=== PATIENT | female | born 1935 | race Caucasian/White ===

== ENCOUNTER → 2020-05-08 13:01 | Outpatient (BNVA) | payer MEDICARE, OTHER, SELFPAY | PROVIDERS: PCP Internal Medicine; Referring Provider Internal Medicine; Visit Provider Nurse Practitioner Family | DX: R07.9 Chest pain, unspecified (principal); R06.02 Shortness of breath; I45.10 Unspecified right bundle-branch block; I48.0 Paroxysmal atrial fibrillation; I10 Essential (primary) hypertension; J44.9 Chronic obstructive pulmonary disease, unspecified; E78.5 Hyperlipidemia, unspecified; Z79.01 Long term (current) use of anticoagulants; Z79.899 Other long term (current) drug therapy | CPT/HCPCS: 99214 ==

== ENCOUNTER → 2020-05-17 09:35 | Outpatient (REF) | payer MEDICARE, OTHER, SELFPAY ==
--- NOTE | 2020-05-17 | NM_ITS ---
Lexiscan Myocardial perfusion study Indication: Chest pain, shortness of breath, abnormal EKG, assess for coronary artery disease and ischemia Technique: The patient was brought in for a Lexiscan perfusion study on 05/17/2020 and was injected 0.4 mg of Lexiscan intravenously. Within a minute of this injection 25 mCi of sestamibi was given intravenously. Images were obtained using the SPECT gamma camera interlaced with the gating device. Images were obtained in supine position. Resting perfusion study was performed on 05/18/2020. Patient was administered 25 mCi of sestamibi intravenously at rest. Images were then obtained in supine position. Total DLP 117mGy-cm. Images were processed with the software and compared side to side in short axis, horizontal long axis and vertical long axis views. Findings: Raw acquisition was reviewed. The stress perfusion study showed no significant perfusion abnormality. Both uncorrected as well as CT attenuation corrected images were reviewed. The gated study shows normal LV systolic function with calculated LVEF of > 70%. LV cavity is normal in size. The gated study shows normal wall thickening and contraction of segments. Resting study shows no significant perfusion abnormality. Gating at rest reveals normal wall motion with ejection fraction at > 70%. The findings are consistent with no reversible or fixed perfusion defects. Impression: 1. Myocardial perfusion imaging study shows normal myocardial perfusion. No evidence of any ischemia or infarction. 2. Gated LVEF is > 70%. 3. Transient ischemic dilatation not present. EKG component of the test reported separately.
--- NOTE | 2020-05-17 07:02 | CA_ITS ---
Acquisition Time: 2020-05-17 10:19:16 Total Exercise Time: 00:02:00 Test Indications: Dyspnea Medications: ELIQUIS LOSARTAN METOPROLOL OMEPRAZOLE SPIRONALACTONE Protocol: LEXISCAN Max HR: 099 BPM 72% of Pred: 136 BPM Max BP: 148/082 mmHG Max Work Load: 1.0 METS Pharmacological stress test using Lexiscan while sitting. Tolerated well. Denies any anginal sx. EKG with A-fib and RBBB. Non-diagnostic for ischemia. Nuclear images to follow. Normotensive response to test. Test reviewed with Dr. Nj. Referred By: Yen Edwards Overread By: Corby Alvares
== END ==
LOC: HO.CARD 09:35
PROVIDERS: Visit Provider Nurse Practitioner Family
DX: R07.9 Chest pain, unspecified (principal); I10 Essential (primary) hypertension; E78.5 Hyperlipidemia, unspecified
CPT/HCPCS: 78452; 93017; A9500; J0280; J2785

== ENCOUNTER → 2020-05-19 10:31 | Outpatient (REF) | payer MEDICARE, OTHER, SELFPAY ==
--- NOTE | 2020-05-19 10:33 | CA_ITS ---
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 - E/E prime ratio is between 8 and 15 consistent with indeterminate filling pressures. Evidence suggests grade I (mild) diastolic dysfunction. - Normal right ventricular cavity size and systolic function. - No significant valvular or pericardial pathology. Findings Left Ventricle Normal left ventricular size and systolic function. There is mildly increased left ventricular wall thickness. The visually estimated ejection fraction is between 60-65%. There is no evidence of regional wall motion abnormalities. Abnormal diastolic function is noted. Spectral Doppler is indicative of an impaired relaxation filling pattern. E/E prime ratio is between 8 and 15 consistent with indeterminate filling pressures. Evidence suggests grade I (mild) diastolic dysfunction. Right Ventricle Normal right ventricular cavity size and systolic function. Atria The left atrium is normal in size. There is no evidence of interatrial shunt by color Doppler. Aortic Valve Normal aortic valve structure and function. There is no aortic valve stenosis. There is trace (trivial) aortic valve regurgitation. Mitral Valve Normal mitral valve structure and function. There is no mitral valve regurgitation. There is no mitral valve stenosis. Pulmonic Valve Normal pulmonic valve structure and function. There is trace pulmonic valve regurgitation. Tricuspid Valve Normal tricuspid valve structure and function. There is mild tricuspid valve regurgitation. Normal right atrial pressure. There is no evidence of pulmonary hypertension. Great Vessels There is mild dilatation of the ascending aorta. The visualized portions of the pulmonary artery and branches are normal. Venous The inferior vena cava is normal in size and collapses greater than 50% with inspiration. Pericardium/Pleural There is no evidence of pericardial effusion. Prior Study Comparison No significant change compared to prior study dated: 05/05/2018. Measurements 2D Linear Measurements IVSd: 1.22 0.6-0.9/0.6-1.0 cm LVIDd: 3.92 3.9-5.3/4.2-5.9 cm LVIDs: 2.51 2.0-3.6 cm LVPWd: 1.17 0.7-1.1 cm Ao Root: 3.42 2.1-3.5 cm LV Mass: 199.66 67-162/88-224 g LVOT Diam: 2.00 3.0+(-)1.3 cm Mitral Valve MV Pk E: 0.59 MV PK A: 1.00 MV Decel Time: 166.63 E/A: 0.59 E'Lateral: 0.07 E'Medial: 0.05 Decel Cowley: 3.54 Aortic Valve AoV Pk Vitaliy: 1.68 AoV Mn Vitaliy: 0.90 AoV VTI: 0.30 AoV Pk Grad: 11.28 Aov Mn Grad: 3.96 LVOT LVOT Pk Vitaliy: 0.94 LVOT Mn Vitaliy: 0.57 LVOT VTI: 0.21 LVOT Pk Grad: 3.50 LVOT Mn Grad: 1.58 LVOT Diam: 2.00 LVOT Area: 3.15 Diastolic Function MV Pk E: 0.59 MV Pk A: 1.00 E/A: 0.59 E'Medial: 0.05 E' Laterial: 0.07 Tricuspid Valve TR Pk Ivtaliy: 2.08 TR Pk Grad: 17.29 RA Press: 3.00 RVSP: 20.00 Great Vessels Aorta Ao Root-2D: 3.42 2.0-3.7 cm Ao Asc: 3.60 2.1-3.4 cm Pulmonary Valve PV Pk Vitaliy: 0.92 Peak PV Grad: 3.44 Updated in Other Vendor System with Status of Final Luis Urias MD electronically signed on 05/21/2020 8:17:53 PM with status of Final
== END ==
LOC: HO.CARD 10:31
PROVIDERS: Visit Provider Nurse Practitioner Family
DX: R07.9 Chest pain, unspecified (principal); E78.5 Hyperlipidemia, unspecified; I10 Essential (primary) hypertension
CPT/HCPCS: 93306

== ENCOUNTER → 2020-06-08 10:26 | Outpatient (BNVA) | payer MEDICARE, OTHER, SELFPAY | PROVIDERS: PCP Internal Medicine; Referring Provider Internal Medicine; Visit Provider Internal Medicine Cardiovascular Disease | DX: R07.89 Other chest pain (principal); I48.0 Paroxysmal atrial fibrillation; I10 Essential (primary) hypertension; E78.5 Hyperlipidemia, unspecified; Z79.01 Long term (current) use of anticoagulants; Z79.899 Other long term (current) drug therapy | CPT/HCPCS: 99212 ==

== ENCOUNTER → 2020-07-24 13:10 | Outpatient (BNVA) | payer MEDICARE, OTHER, SELFPAY | PROVIDERS: PCP Internal Medicine; Visit Provider Internal Medicine Cardiovascular Disease | DX: I48.0 Paroxysmal atrial fibrillation (principal); R07.9 Chest pain, unspecified | CPT/HCPCS: 99212 ==

== ENCOUNTER 2020-08-15 14:00 | Outpatient (REF) | payer MEDICARE, OTHER, SELFPAY ==
--- NOTE | 2020-08-15 | XR_ITS ---
EXAMINATION: XR HIP, LEFT CLINICAL INFORMATION: Left groin pain COMPARISON: None TECHNIQUE: Two views of the left hip. FINDINGS: There is no fracture, dislocation, destructive process. No focal joint narrowing or erosive change. Soft tissue planes are unremarkable. The visualized SI joints and pubis are unremarkable. XR/XR hip LT min 2V IMPRESSION: Unremarkable left hip.
[2020-08-15 17:05] LABS: Anion Gap 14 (12-20); Blood Urea Nitrogen 18 mg/dL (9-16); Calcium 9.9 mg/dL (8.4-10.2); Carbon Dioxide 27 mmol/L (22-29); Chloride 103 mmol/L (96-108); Estimated Glomerular Filt Rate 56; Glucose Random 124 mg/dL (60-115); Potassium 4.3 mmol/l (3.3-5.1); Sodium 140 mmol/L (135-145)
== END 2020-08-15 14:01 | disposition home or self-care (01) ==
LOC: HO.HMGCX 14:00
PROVIDERS: Internal Medicine Cardiovascular Disease; PCP Internal Medicine; Visit Provider Internal Medicine
DX: I10 Essential (primary) hypertension (principal); R73.01 Impaired fasting glucose; E78.00 Pure hypercholesterolemia, unspecified; G47.00 Insomnia, unspecified; R10.32 Left lower quadrant pain
CPT/HCPCS: 36415; 73502; 80048

== ENCOUNTER 2020-10-02 09:39 | Day surgery (SDC) | payer MEDICARE, OTHER, SELFPAY ==
[2020-09-27 10:41] VITALS: BMI 28.1
--- NOTE | 2020-09-29 08:42 | HO.ANESPROP2 ---
Documented by User: Shira Tatyana 09/29/20 11:01 HPI - Anesthesia Eval Consult details Narrative: 85yo F for Upper Endoscopy with Balloon Dilitation Per cardiology OK [facility] Active Problems Active Problems: All Active Problems (Updated 09/27/20 @ 10:40 by Galilea Nation) Chest pain (Acute) Nephropathy (Acute) Impaired fasting blood sugar (Acute) Groin pain, chronic, left (Acute) Chronic GERD (Acute) Paroxysmal atrial fibrillation (Acute) HTN (hypertension) (Acute) COPD (chronic obstructive pulmonary disease) (Acute) HLD (hyperlipidemia) (Acute) RBBB (Acute) Past Medical History Medical History Arthritis Back pain COPD (chronic obstructive pulmonary disease) COVID-19 vaccine administered GERD (gastroesophageal reflux disease) Hard of hearing History of postoperative nausea and vomiting HLD (hyperlipidemia) HTN (hypertension) Hx of motion sickness Hx of vertigo Paroxysmal atrial fibrillation RBBB Family History Family History Father Cancer Mother CAD (coronary artery disease) Emphysema/COPD HTN (hypertension) Surgical History Surgical History Hx laparoscopic cholecystectomy (~1979) Hx of appendectomy Hx of cataract surgery (~2004) Hx of colonoscopy Hx of hysterectomy Hx of right breast biopsy Hx of tonsillectomy Social History Social History Are you a primary health care consultant to a significant other at home: No Do you presently have visiting nurse or other home services: No Alcohol intake: never Smoking Status: Never smoker Second Hand Smoke Exposure: Yes Use of substances other than those prescribed or required for medical reasons: No Have you been hit, kicked, punched, or otherwise hurt by someone within the past year? If so, by whom?: No Advance Directives: No (unknown) Advance Directives Information Provided: No Recently lost weight without trying: No Meds Allergies Allergy/AdvReac Type Severity Reaction Status Date / Time bandage adhesive Allergy Intermediate rash Verified 09/27/20 10:21 bumetanide [Bumex] AdvReac Intermediate gout Verified 09/27/20 10:21 furosemide [Lasix] AdvReac Intermediate gout Verified 09/27/20 10:21 Home Medications Medication Instructions Recorded Confirmed Last Taken Type ascorbic acid (vitamin C) 500 mg 500 mg PO DAILY 05/06/20 09/27/20 Unknown History capsule cholecalciferol (vitamin D3) 50 50 mcg PO DAILY 05/06/20 09/27/20 Unknown History mcg (2,000 unit) chewable tablet omeprazole 20 mg capsule,delayed 20 mg PO DAILY 05/06/20 09/27/20 Unknown History release acetaminophen 325 mg capsule 650 mg PO Q6H PRN 07/24/20 09/27/20 Unknown History multivitamin 1 tab PO DAILY 07/24/20 09/27/20 Unknown History dimenhydrinate [Dramamine] 50 mg PO Q4-6H PRN 09/27/20 09/27/20 Unknown History Exam Exam Date and Time: September 29, 2020 0842 Height,Weight and Vital Signs: Height 5 ft 3 in Weight 72.121 kg Narrative Narrative: Stress MIBI 05/2020 Impression: Pharmacological stress test using Lexiscan while sitting. Tolerated well. Denies any anginal sx. EKG with A-fib and RBBB. Non-diagnostic for ischemia. Nuc Images 1. Myocardial perfusion imaging study shows normal myocardial perfusion. No evidence of any ischemia or infarction. 2. Gated LVEF is > 70%. 3. Transient ischemic dilatation not present. ECHO 05/2020 Conclusions: - The visually estimated ejection fraction is between 60-65%. - E/E prime ratio is between 8 and 15 consistent with indeterminate filling pressures. Evidence suggests grade I (mild) diastolic dysfunction. - Normal right ventricular cavity size and systolic function. - No significant valvular or pericardial pathology. EKG 05/08/20 NSR LAD RBBB T wave abn, ? lateral ischemia Assessment and Plan Assessment Anesthesia Assessment: Chart Reviewed Documented by User: Frederick Vinson 10/02/20 10:42 [facility] Past Medical History Medical History Arthritis Back pain COPD (chronic obstructive pulmonary disease) COVID-19 vaccine administered GERD (gastroesophageal reflux disease) Hard of hearing History of postoperative nausea and vomiting HLD (hyperlipidemia) HTN (hypertension) Hx of motion sickness Hx of vertigo Paroxysmal atrial fibrillation RBBB Family History Family History Father Cancer Mother CAD (coronary artery disease) Emphysema/COPD HTN (hypertension) Surgical History Surgical History Hx laparoscopic cholecystectomy (~1979) Hx of appendectomy Hx of cataract surgery (~2004) Hx of colonoscopy Hx of hysterectomy Hx of right breast biopsy Hx of tonsillectomy Social History Social History Are you a primary health care consultant to a significant other at home: No Do you presently have visiting nurse or other home services: No Alcohol intake: never Smoking Status: Never smoker Second Hand Smoke Exposure: Yes Use of substances other than those prescribed or required for medical reasons: No Have you been hit, kicked, punched, or otherwise hurt by someone within the past year? If so, by whom?: No Advance Directives: No (unknown) Advance Directives Information Provided: No Recently lost weight without trying: No Meds Allergies Allergy/AdvReac Type Severity Reaction Status Date / Time bandage adhesive Allergy Intermediate rash Verified 09/27/20 10:21 bumetanide [Bumex] AdvReac Intermediate gout Verified 09/27/20 10:21 furosemide [Lasix] AdvReac Intermediate gout Verified 09/27/20 10:21 Home Medications Medication Instructions Recorded Confirmed Last Taken Type ascorbic acid (vitamin C) 500 mg 500 mg PO DAILY 05/06/20 09/27/20 Unknown History capsule cholecalciferol (vitamin D3) 50 50 mcg PO DAILY 05/06/20 09/27/20 Unknown History mcg (2,000 unit) chewable tablet omeprazole 20 mg capsule,delayed 20 mg PO DAILY 05/06/20 09/27/20 Unknown History release acetaminophen 325 mg capsule 650 mg PO Q6H PRN 07/24/20 09/27/20 Unknown History multivitamin 1 tab PO DAILY 07/24/20 09/27/20 Unknown History dimenhydrinate [Dramamine] 50 mg PO Q4-6H PRN 09/27/20 09/27/20 Unknown History Exam Airway Mallampati Class: II TM Dist: >3cm Neck ROM: Full Partial: Upper and Lower Heart: [id number] Lungs: cta b/l Assessment and Plan Assessment Anesthesia Assessment: Anesthesia Plan Discussed, PAT Visit and Chart Reviewed Final Anesthetic Review NPO: Yes ASA Class: III Final Preanesthetic Review: No Changes in Pt Med Stat, Meds/Allgs Chart Reviewed, Consent Obtained/Reviewed and Anes Risks/Benef Reviewed Patient Risk: Intermediate Procedure Risk: Low Anesthetic Plan Anesthetic Plan: MAC: and Agree w/ Assess. and Plan Disposition: Standard PACU
[2020-10-02 10:04] VITALS: BP 190/88; PULSE 74; RESP 16; TEMP 36.9; O2SAT 16
[2020-10-02] MEDS: Lactated Ringers 1,000 ML 50 ML IV (10:31)
[2020-10-02 11:14] VITALS: BP 105/47; PULSE 70; RESP 16; TEMP 36.1; O2SAT 95
--- NOTE | 2020-10-02 11:18 | PM.OP ---
Brief Operative Note Date of Service: 10/02/20 Pre-op diagnosis: Dysphagia, diarrhea Post-op diagnosis: other (Esophageal ring, Hiatal hernia, Gastric polyps) Procedure: EGD with biopsies and balloon dialtion of EG Junction with an 18mm balloon Surgeon: Maxime Mata Anesthesia: MAC Estimated blood loss (mL): 4.0 Pathology: other (A. Descending duodenum B. Gastric polyps) Condition: stable Disposition: PACU
[2020-10-02 11:29] VITALS: BP 132/52; PULSE 72; RESP 17; TEMP 36.1; O2SAT 97
--- NOTE | 2020-10-02 11:30 | OP_ITS ---
SURGEON: Maxime Mata MD INDICATIONS: The patient presents for evaluation of intermittent dysphagia and abdominal bloating. Full consent has been obtained from her for this, including risks of bleeding and perforation. PREOPERATIVE DIAGNOSIS: POSTOPERATIVE DIAGNOSIS: PROCEDURE PERFORMED: Esophagogastroduodenoscopy with biopsies, and balloon dilation of gastroesophageal junction. ESTIMATED BLOOD LOSS: COMPLICATIONS: ANESTHESIA: Monitored anesthesia care. ASSISTANTS: SPECIMENS: PREOPERATIVE DIAGNOSES: Dysphagia, gastroesophageal reflux, and abdominal bloating. POSTOPERATIVE DIAGNOSES: Dysphagia, gastroesophageal reflux, and abdominal bloating, hiatal hernia, rule out celiac disease, gastric polyps, question of very minimal distal esophageal ring. DESCRIPTION OF PROCEDURE: The patient was placed in the left lateral decubitus position. The Olympus video gastroscope was passed in the posterior oropharynx and upper esophagus under direct vision. The scope was passed slowly into the distal esophagus. The gastroesophageal junction appeared at 36 cm. With insufflation of air, there appeared to be a very subtle and definitely nonobstructing esophageal ring. There was no esophagitis nor gross evidence of Augustine's esophagus. The scope entered into the stomach easily. There was a small hiatal hernia. The scope was advanced to pylorus and duodenum was cannulated to the descending portion. The duodenum including the bulb appeared normal without mass or ulceration. Biopsies were obtained from the 2nd and 3rd portions of duodenum. The scope was withdrawn back in the stomach. The gastric antrum appeared normal. The scope was retroflexed visualizing the proximal stomach carefully, which had multiple hyperplastic and/or inflammatory appearing polyps. There was no mass or ulceration. The scope was straightened. There was good peristalsis in the gastric antrum. Biopsies were obtained from some of the gastric polyps. The scope was withdrawn back in the esophagus. Given her symptomatology and the findings, I did use a [employer] balloon to dilate the gastroesophageal junction with an 18 mm balloon at the recommended pressure for 30 to 60 seconds. Post dilation, there was some heme noted. The esophageal mucosa otherwise appeared normal throughout the esophagus. The scope was withdrawn from the patient. She tolerated the procedure well and was returned to recovery area in stable condition. IMPRESSION: 1. Very subtle distal esophageal ring, status post balloon dilation. 2. Hiatal hernia. 3. Gastric polyps. 4. Rule out celiac disease. PLAN: The results of the biopsy will be checked. She was advised to continue her daily omeprazole. She was advised that she could resume her Xarelto tomorrow. She will continue to be carefully eating and will see me in 2 to 3 months for a followup visit. MD NIMISHA Kwok/BRIA / [phone]
== END 2020-10-02 11:53 | disposition home or self-care (01) ==
PROVIDERS: PCP Internal Medicine; Visit Provider Internal Medicine
PROC: (CPT 43249; principal; 2020-10-02 10:30)
DX: K22.2 Esophageal obstruction (principal); K21.9 Gastro-esophageal reflux disease without esophagitis; K31.7 Polyp of stomach and duodenum; K44.9 Diaphragmatic hernia without obstruction or gangrene; J44.9 Chronic obstructive pulmonary disease, unspecified; I10 Essential (primary) hypertension; I48.0 Paroxysmal atrial fibrillation; Z79.01 Long term (current) use of anticoagulants; Z79.899 Other long term (current) drug therapy; Z88.8 Allergy status to other drugs, medicaments and biological substances
CPT/HCPCS: 43249; 43239; 88305; 88342; C1726

== ENCOUNTER 2020-10-05 11:20 | Outpatient (REF) | payer MEDICARE, OTHER, SELFPAY ==
[2020-10-05 14:32] LABS: Anion Gap 14 (12-20); Blood Urea Nitrogen 20 mg/dL (9-16); Calcium 9.8 mg/dL (8.4-10.2); Carbon Dioxide 27 mmol/L (22-29); Chloride 104 mmol/L (96-108); Estimated Glomerular Filt Rate 50; Glucose Random 122 mg/dL (60-115); Potassium 4.1 mmol/L (3.3-5.1); Sodium 141 mmol/L (135-145)
== END 2020-10-05 11:21 | disposition home or self-care (01) ==
LOC: HO.HMGCLDS 11:20
PROVIDERS: PCP Internal Medicine; Visit Provider Internal Medicine Cardiovascular Disease
DX: R07.9 Chest pain, unspecified (principal); I10 Essential (primary) hypertension
CPT/HCPCS: 36415; 80048

== ENCOUNTER 2020-10-10 15:42 | Emergency (ER) | payer MEDICARE, OTHER, SELFPAY ==
--- NOTE | ~2020-10-10 | CT_ITS ---
EXAMINATION: CT HEAD WITHOUT CONTRAST CLINICAL INFORMATION: Lightheaded. Loss of balance. COMPARISON: CT head from 04/30/2012. TECHNIQUE: Contiguous axial imaging was performed from the skull base to vertex without intravenous administration of contrast. This CT examination was performed using dose optimization techniques as appropriate, variously including the following: *Automated exposure control. *Adjustment of mA and/or kV according to patient size (this includes techniques or standardized protocols for targeted exams where dose is matched to indication/reason for exam; i.e. extremities or head). *Use of iterative reconstruction technique. DLP: 657 mGy-cm FINDINGS: There is no evidence of acute intracranial hemorrhage or edematous territorial infarction. A few foci of hypoattenuation in the periventricular and deep white matter are consistent with mild microangiopathy. Trevino-white matter differentiation is preserved. Proportional prominence of the ventricles and sulcal spaces. No evidence for obstructive hydrocephalus. No abnormal mass effect or midline shift. No extra-axial fluid collections. Calcific atherosclerotic disease of the intracranial internal carotid and vertebral arteries. No hyperdense vessel sign. No acute soft tissue or osseous abnormalities. Mild rightward nasal septal deviation. The mastoid air cells and middle ear cavities remain well aerated. Bilateral lens extractions. CT/CT head/brain wo con IMPRESSION: 1. No evidence of acute intracranial hemorrhage or edematous territorial infarction. 2. Mild underlying microangiopathy and generalized cerebral volume loss.
[2020-10-10 15:48] VITALS: BP 219/11; PULSE 84; RESP 16; TEMP 37.1; O2SAT 99; BMI 28.0
[2020-10-10 16:20] VITALS: BP 187/82
--- NOTE | 2020-10-10 16:21 | PC.NURSE ---
patient reports that she became lightheaded earlier today while at physical therapy. blood pressure at that time was stable. then was sent to pcp where blood pressure was WNL. patient states she was told to come to ED for evaluation. states she does feel frustrated that she was referred to come to ED. blood pressure rechecked, has come down slightly. patient states she took her blood pressure meds this morning before going to physical therapy and is due again at dinner time. waiting to be seen by .
[2020-10-10 16:31] VITALS: BP 169/84
--- NOTE | 2020-10-10 16:53 | ECG_ITS ---
Test Reason : HYPERTENSION Blood Pressure : / mmHG Vent. Rate : 079 BPM Atrial Rate : 079 BPM P-R Int : 164 ms QRS Dur : 132 ms QT Int : 418 ms P-R-T Axes : 055 -36 -03 degrees QTc Int : 479 ms Normal sinus rhythm Left axis deviation Right bundle branch block Abnormal ECG When compared with ECG of 01-FEB-2016 13:26, No significant change was found Referred By: Kelsey Fletcher Electronically Signed By:Luis Urias
[2020-10-10 17:27] LABS: Glucose, Whole Blood 110 mg/dL (60-115)
[2020-10-10 17:38] LABS: MANUAL DIFF FLAG NO
--- NOTE | 2020-10-10 17:40 | ED.DIZZY ---
HPI - Dizziness General Chief Complaint: Dizziness Stated Complaint: light headed, nausea Time Seen by Provider: 10/10/20 16:44 Source: patient Mode of arrival: ambulatory Limitations: no limitations History of Present Illness HPI Narrative: 85-year-old female with past medical history of paroxysmal AFib on Eliquis, hypertension, COPD, hyperlipidemia, right bundle-branch block, nephropathy, and chronic left groin pain presents the emergency department from physical therapy and urgent care after dizziness, lightheadedness and intermittent loss of balance. She does not report any fevers, chills, changes in vision, headaches, chest pain or pressure, palpitations, shortness of breath, shortness of breath on exertion, edema, abdominal pain, abdominal distention, dysuria, hematuria, fevers or chills. MD elicited complaint: dizziness, lightheadedness and vertigo Pertinent past history: BPPV Onset (ago): day(s) Timing: gradual onset and intermittent Severity: moderate Description: lightheadedness and off-balance History of similar symptoms: Yes Exacerbating factors: movement/ambulation and change in body position Relieving factors: nothing Associated symptoms: denies other symptoms Stroke scale total: 0 Related Data Home Medications Medication Instructions Recorded Confirmed ascorbic acid (vitamin C) 500 mg 500 mg PO DAILY 05/06/20 09/27/20 capsule cholecalciferol (vitamin D3) 50 50 mcg PO DAILY 05/06/20 09/27/20 mcg (2,000 unit) chewable tablet omeprazole 20 mg capsule,delayed 20 mg PO DAILY 05/06/20 09/27/20 release acetaminophen 325 mg capsule 650 mg PO Q6H PRN 07/24/20 09/27/20 multivitamin 1 tab PO DAILY 07/24/20 09/27/20 dimenhydrinate [Dramamine] 50 mg PO Q4-6H PRN 09/27/20 09/27/20 Previous Rx's Medication Instructions Recorded losartan 25 mg tablet 25 mg PO DAILY 90 Days #90 tab 09/01/20 apixaban 5 mg tablet 5 mg PO BID 90 Days #180 tab 09/18/20 metoprolol succinate 50 mg 50 mg PO BID 90 Days #180 tab 09/18/20 tablet,extended release 24 hr spironolactone 50 mg tablet 50 mg PO DAILY 90 Days #90 tab 09/22/20 cefuroxime axetil 500 mg PO Q12H 7 Days #14 tab 10/10/20 Allergies Allergy/AdvReac Type Severity Reaction Status Date / Time bandage adhesive Allergy Intermediate rash Verified 09/27/20 10:21 bumetanide [Bumex] AdvReac Intermediate gout Verified 09/27/20 10:21 furosemide [Lasix] AdvReac Intermediate gout Verified 09/27/20 10:21 Review of Systems Review of Systems: Constitutional: Positive dizziness, positive lightheadedness, positive intermittent loss of balance secondary to dizziness, No Weight loss, No Fever, No Chills, ENT/Mouth: No Hearing loss, No Ear Pain, No Nasal Congestion, No Sinus Pain, No Hoarseness, No sore throat, No Rhinorrhea, No Swallowing Difficulty Cardiovascular: No Chest Pain, No SOB, no shortness of breath on exertion Respiratory: No Cough, No Dyspnea Gastrointestinal: No Nausea, No Vomiting, No Diarrhea, No abdominal Pain, No Hematochezia, No Melena Genitourinary: No Dysuria, No Urinary Frequency, No Hematuria, No Urinary Incontinence, Musculoskeletal: No pain, no swelling to the extremities Skin: No Skin Lesions, No rash, no abnormal bleeding or bruising Neuro: No Weakness, No Numbness, No Paresthesias, no loss of bowel or bladder incontinence, no saddle anesthesia Yes all other systems are reviewed and are negative [facility] Past Medical History Attestation statement: The following information was validated with the patient. Source: old records reviewed Medical History Arthritis Back pain COPD (chronic obstructive pulmonary disease) COVID-19 vaccine administered GERD (gastroesophageal reflux disease) Hard of hearing History of postoperative nausea and vomiting HLD (hyperlipidemia) HTN (hypertension) Hx of motion sickness Hx of vertigo Paroxysmal atrial fibrillation RBBB Surgical History Hx laparoscopic cholecystectomy (~1979) Hx of appendectomy Hx of cataract surgery (~2004) Hx of colonoscopy Hx of hysterectomy Hx of right breast biopsy Hx of tonsillectomy Family History Family History Father Cancer Mother CAD (coronary artery disease) Emphysema/COPD HTN (hypertension) Social History Social History Alcohol intake: never Smoking Status: Never smoker Smoked in Last 30 Days: No Second Hand Smoke Exposure: Yes Use of substances other than those prescribed or required for medical reasons: No Advance Directives: No Advance Directives Information Provided: No Physical Exam Vital Signs: Vital Signs: Last Vital Signs Temp 98.7 F 10/10/20 15:48 Pulse 70 10/10/20 17:45 Resp 16 10/10/20 15:48 BP 147/78 H 10/10/20 17:50 Pulse Ox 99 10/10/20 15:48 Body Mass Index 28.0 Appearance: Alert. Oriented X3. No acute distress. Eyes: Pupils equal, round and reactive to light. EOMI, sclera nonicteric ENT: Pharynx normal. Trachea midline, moist mucous membranes Neck: Normal inspection. Neck supple. No cervical lymphadenopathy CVS: Normal heart rate and rhythm. Pulses normal. Respiratory: No respiratory distress. Lung sounds clear to auscultation all lobes Abdomen: Soft and nontender. Skin: Skin warm and dry. Normal skin color. Normal skin turgor. Extremities: No lower extremity edema. Strength 5/5 to all extremities Neuro: No motor deficit. No sensory deficit. Cranial nerves 2-12 intact, no focal neural deficit, gait well balanced well coordinated NIH Stroke Scale Internal: Initial- Upon Arrival Level of Consciousness: Alert Level of Consciousness Questions: Answers both questions correctly Level of Consciousness Commands: Performs both tasks correctly Best Gaze: Normal Visual: No visual loss Facial Palsy: Normal Motor Arm (Right): No drift Motor Arm (Left): No drift Motor Leg (Right): No drift Motor Leg (Left): No drift Limb Ataxia: Absent Sensory: Normal Best Language: No aphasia Dysarthia: Normal Extinction and Inattention: No abnormality Score: 0 Course Course Course Narrative: 85-year-old female with past medical history of AFib on Eliquis, vertigo, nephropathy, GERD, hypertension, hyperlipidemia, COPD, right bundle-branch block and GERD presents with dizziness and lightheadedness after physical therapy. She does state intermittent loss of balance. She is having a full cardiac workup at [facility] with angiogram next week. Plan of care is for CT scan of head, rule out ACS and UTI. 6:[address] scan of head is negative for acute findings requiring emergent intervention, chronic changes noted. 7:00 p.m. p.m. RN updated this BLEACH SUPERVISOR that patient wanted to be discharged home. Urinalysis was not collected, and repeat troponin is needed. This was discussed with RN as well as patient. Patient agrees to provide urine sample and 2nd troponin. Urinalysis positive for UTI, 2nd troponin not significantly elevated, troponin elevation could possibly be because of patient's long-standing AFib. She does have significant follow-up with Cardiology next week. Patient verbalizes understanding of and agrees to plan of care to discharge home. MDM - Dizziness Differential Diagnosis Differential diagnosis: Likely benign paroxysmal positional vertigo, orthostatic hypotension and cerebrovascular accident Medical Records Attestation: I reviewed the patient's medical records. Lab Data Attestation: I reviewed the patient's lab results. Result diagrams: 10/10/20 17:33 10/10/20 17:33 Labs: Lab Results 10/10/20 10/10/20 10/10/20 Range/Units 17:23 17:33 17:33 WBC 9.0 (4.8-10.8) X10*3/uL RBC 4.40 (4.20-5.50) X10*6/uL Hgb 13.6 (12.0-16.0) g/dl Hct 41.0 (37-47) % MCV 93.2 (80-98) fL MCH 30.9 (27.0-33.0) pg MCHC 33.2 (31.0-35.0) g/dl RDW 12.8 (11.0-16.0) % Plt Count 183 (160-400) X10*3/uL MPV 11.1 (9.4-12.3) fL Immature Gran % (Auto) 0.4 (0.0-0.4) % Neut % (Auto) 61.0 (45-73) % Lymph % (Auto) 26.6 (20-40) % Mayes % (Auto) 10.0 (2-11) % Eos % (Auto) 1.7 (0-4) % Baso % (Auto) 0.3 (0-2) % Lymph # (Auto) 2.4 (1.2-4.9) X10*3/uL Mayes # (Auto) 0.9 (0.1-1.2) X10*3/uL Eos # (Auto) 0.2 (0.0-0.4) X10*3/uL Baso # (Auto) 0.0 (0.0-0.2) X10*3/uL Abs Immat Gran (auto) 0.04 H (0.00-0.03) X10*3/uL Absolute Neuts (auto) 5.5 (2.0-8.3) X10*3/uL Absolute Nucleated RBC 0.000 (0.0-0.012) X10*3/uL Nucleated RBC % (auto) 0.0 (0.0-0.2) /100WBC PT (10.8-13.0) SEC INR (0.9-1.1) APTT (24.1-38.0) SEC Sodium (135-145) mmol/L Potassium (3.3-5.1) mmol/L Chloride (96-108) mmol/L Carbon Dioxide (22-29) mmol/L Anion Gap (12-20) BUN (9-16) mg/dL Creatinine (0.5-1.4) mg/dL Estim Creat Clear Calc Estimated GFR POC Glucose 110 (60-115) mg/dL Random Glucose (60-115) mg/dL Calcium (8.4-10.2) mg/dL Total Bilirubin (0.0-1.0) mg/dL Direct Bilirubin (0.0-0.5) mg/dL AST (5-31) U/L ALT (0-31) U/L Alkaline Phosphatase (39-117) U/L Troponin I High Sens 5.7 (<3.5-17.0) ng/L Total Protein (6.5-8.0) g/dL Albumin (3.5-5.0) g/dL Lipase (8-78) U/L Urine Color Urine Appearance Urine pH (5.0-8.0) Ur Specific Lynn (1.005-1.025) Urine Protein (NEG-TRACE) MG/DL Urine Glucose (UA) (NEG) MG/DL Urine Ketones (NEG) MG/DL Urine Blood (NEG) Urine Nitrite (NEG) Ur Leukocyte Esterase (NEG) Urine RBC (0) /HPF Urine WBC (0-4) /HPF Ur Squamous Epith Cells /LPF Urine Bacteria /LPF 10/10/20 10/10/20 10/10/20 Range/Units 17:33 17:33 19:22 WBC (4.8-10.8) X10*3/uL RBC (4.20-5.50) X10*6/uL Hgb (12.0-16.0) g/dl Hct (37-47) % MCV (80-98) fL MCH (27.0-33.0) pg MCHC (31.0-35.0) g/dl RDW (11.0-16.0) % Plt Count (160-400) X10*3/uL MPV (9.4-12.3) fL Immature Gran % (Auto) (0.0-0.4) % Neut % (Auto) (45-73) % Lymph % (Auto) (20-40) % Mayes % (Auto) (2-11) % Eos % (Auto) (0-4) % Baso % (Auto) (0-2) % Lymph # (Auto) (1.2-4.9) X10*3/uL Mayes # (Auto) (0.1-1.2) X10*3/uL Eos # (Auto) (0.0-0.4) X10*3/uL Baso # (Auto) (0.0-0.2) X10*3/uL Abs Immat Gran (auto) (0.00-0.03) X10*3/uL Absolute Neuts (auto) (2.0-8.3) X10*3/uL Absolute Nucleated RBC (0.0-0.012) X10*3/uL Nucleated RBC % (auto) (0.0-0.2) /100WBC PT 14.9 H (10.8-13.0) SEC INR 1.3 H (0.9-1.1) APTT 37.8 (24.1-38.0) SEC Sodium 140 (135-145) mmol/L Potassium 4.0 (3.3-5.1) mmol/L Chloride 105 (96-108) mmol/L Carbon Dioxide 27 (22-29) mmol/L Anion Gap 12 (12-20) BUN 18 H (9-16) mg/dL Creatinine 0.96 (0.5-1.4) mg/dL Estim Creat Clear Calc 41.3 Estimated GFR 55 POC Glucose (60-115) mg/dL Random Glucose 119 H (60-115) mg/dL Calcium 10.0 (8.4-10.2) mg/dL Total Bilirubin 0.7 (0.0-1.0) mg/dL Direct Bilirubin 0.2 (0.0-0.5) mg/dL AST 14 (5-31) U/L ALT 17 (0-31) U/L Alkaline Phosphatase 66 (39-117) U/L Troponin I High Sens (<3.5-17.0) ng/L Total Protein 7.3 (6.5-8.0) g/dL Albumin 4.5 (3.5-5.0) g/dL Lipase 50 (8-78) U/L Urine Color YELLOW Urine Appearance CLEAR Urine pH 5.5 (5.0-8.0) Ur Specific Lynn 1.010 (1.005-1.025) Urine Protein NEG (NEG-TRACE) MG/DL Urine Glucose (UA) NEG (NEG) MG/DL Urine Ketones NEG (NEG) MG/DL Urine Blood TRACE (NEG) Urine Nitrite NEG (NEG) Ur Leukocyte Esterase 2+ H (NEG) Urine RBC 0 (0) /HPF Urine WBC 5-9 H (0-4) /HPF Ur Squamous Epith Cells 1+ /LPF Urine Bacteria 1+ /LPF 10/10/20 Range/Units 19:37 WBC (4.8-10.8) X10*3/uL RBC (4.20-5.50) X10*6/uL Hgb (12.0-16.0) g/dl Hct (37-47) % MCV (80-98) fL MCH (27.0-33.0) pg MCHC (31.0-35.0) g/dl RDW (11.0-16.0) % Plt Count (160-400) X10*3/uL MPV (9.4-12.3) fL Immature Gran % (Auto) (0.0-0.4) % Neut % (Auto) (45-73) % Lymph % (Auto) (20-40) % Mayes % (Auto) (2-11) % Eos % (Auto) (0-4) % Baso % (Auto) (0-2) % Lymph # (Auto) (1.2-4.9) X10*3/uL Mayes # (Auto) (0.1-1.2) X10*3/uL Eos # (Auto) (0.0-0.4) X10*3/uL Baso # (Auto) (0.0-0.2) X10*3/uL Abs Immat Gran (auto) (0.00-0.03) X10*3/uL Absolute Neuts (auto) (2.0-8.3) X10*3/uL Absolute Nucleated RBC (0.0-0.012) X10*3/uL Nucleated RBC % (auto) (0.0-0.2) /100WBC PT (10.8-13.0) SEC INR (0.9-1.1) APTT (24.1-38.0) SEC Sodium (135-145) mmol/L Potassium (3.3-5.1) mmol/L Chloride (96-108) mmol/L Carbon Dioxide (22-29) mmol/L Anion Gap (12-20) BUN (9-16) mg/dL Creatinine (0.5-1.4) mg/dL Estim Creat Clear Calc Estimated GFR POC Glucose (60-115) mg/dL Random Glucose (60-115) mg/dL Calcium (8.4-10.2) mg/dL Total Bilirubin (0.0-1.0) mg/dL Direct Bilirubin (0.0-0.5) mg/dL AST (5-31) U/L ALT (0-31) U/L Alkaline Phosphatase (39-117) U/L Troponin I High Sens 5.9 (<3.5-17.0) ng/L Total Protein (6.5-8.0) g/dL Albumin (3.5-5.0) g/dL Lipase (8-78) U/L Urine Color Urine Appearance Urine pH (5.0-8.0) Ur Specific Lynn (1.005-1.025) Urine Protein (NEG-TRACE) MG/DL Urine Glucose (UA) (NEG) MG/DL Urine Ketones (NEG) MG/DL Urine Blood (NEG) Urine Nitrite (NEG) Ur Leukocyte Esterase (NEG) Urine RBC (0) /HPF Urine WBC (0-4) /HPF Ur Squamous Epith Cells /LPF Urine Bacteria /LPF Imaging Data CT scan - head: Attestation: I personally reviewed and interpreted this imaging study as follows: Radiologist's impression: EXAMINATION: CT HEAD WITHOUT CONTRAST CLINICAL INFORMATION: Lightheaded. Loss of balance. COMPARISON: CT head from 04/30/2012. TECHNIQUE: Contiguous axial imaging was performed from the skull base to vertex without intravenous administration of contrast. This CT examination was performed using dose optimization techniques as appropriate, variously including the following: *Automated exposure control. *Adjustment of mA and/or kV according to patient size (this includes techniques or standardized protocols for targeted exams where dose is matched to indication/reason for exam; i.e. extremities or head). *Use of iterative reconstruction technique. DLP: 657 mGy-cm FINDINGS: There is no evidence of acute intracranial hemorrhage or edematous territorial infarction. A few foci of hypoattenuation in the periventricular and deep white matter are consistent with mild microangiopathy. Trevino-white matter differentiation is preserved. Proportional prominence of the ventricles and sulcal spaces. No evidence for obstructive hydrocephalus. No abnormal mass effect or midline shift. No extra-axial fluid collections. Calcific atherosclerotic disease of the intracranial internal carotid and vertebral arteries. No hyperdense vessel sign. No acute soft tissue or osseous abnormalities. Mild rightward nasal septal deviation. The mastoid air cells and middle ear cavities remain well aerated. Bilateral lens extractions. CT/CT head/brain wo con IMPRESSION: 1. No evidence of acute intracranial hemorrhage or edematous territorial infarction. 2. Mild underlying microangiopathy and generalized cerebral volume loss. ECG Data Attestation: I personally reviewed and interpreted this ECG as follows: ECG interpretation date: 10/10/20 ECG interpretation time: 16:05 Interpretation: Ventricular rate 79 beats per minute, MS 164, QRS 132, QT 418, QTC 479 normal rhythm, left axis deviation, right bundle-branch block, prior EKGs unavailable secondary to system 130 error Discharge Plan Discharge Clinical Impression: Acute UTI Patient Disposition: Home, Self-Care Instructions: Urinary Tract Infection in Older Adults (ED) Additional Instructions: You were evaluated for dizziness. CT scan of the head is negative for acute findings requiring emergent intervention. Troponins show a mild elevation at 5.7 this could possibly be because of your atrial fib. Your urinalysis is positive for UTI. Please take cefuroxime twice a day for the next 7 days. This medication is an antibiotic. Please follow up with Cardiology as scheduled. Thank you for choosing this emergency department for evaluation. Please follow-up with primary care physician as needed. Return to the emergency department for any new, concerning, or worsening symptoms. Prescriptions: New cefuroxime axetil 500 mg tablet 500 mg PO Q12H 7 Days Qty: 14 RF: 0 No Action losartan 25 mg tablet 25 mg PO DAILY 90 Days Qty: 90 RF: 0 Hold Instructions: Doctor's Order Eliquis 5 mg tablet 5 mg PO BID 90 Days Qty: 180 RF: 0 metoprolol succinate 50 mg tablet extended release 24 hr 50 mg PO BID 90 Days Qty: 180 RF: 0 spironolactone 50 mg tablet 50 mg PO DAILY 90 Days Qty: 90 RF: 0 dimenhydrinate [Dramamine] 50 mg Tablet 50 mg PO Q4-6H PRN (Reason: Motion Sickness) RF: 0 acetaminophen [Tylenol] 325 mg capsule 650 mg PO Q6H PRN (Reason: Pain) RF: 0 multivitamin Tablet 1 tab PO DAILY RF: 0 cholecalciferol (vitamin D3) 50 mcg (2,000 unit) tablet,chewable 50 mcg PO DAILY RF: 0 omeprazole 20 mg capsule,delayed release(DR/EC) 20 mg PO DAILY RF: 0 ascorbic acid (vitamin C) 500 mg capsule 500 mg PO DAILY RF: 0 Interventions: ED Discharge Assessment Last Done: 10/10/20 20:00 Discharge Date/Time: 10/10/20 20:07
[2020-10-10 17:44] VITALS: BP 151/61; PULSE 66
[2020-10-10 17:44] LABS: Basophils Percent Auto 0.3 % (0-2); Eosinophils Absolute Auto 0.2 X10*3/uL (0.0-0.4); Eosinophils Percent Auto 1.7 % (0-4); Hemoglobin 13.6 g/dl (12.0-16.0); Imm Gran Abs Auto 0.04 X10*3/uL (0.00-0.03); Imm Gran Pct Auto 0.4 % (0.0-0.4); Lymphocytes Absolute Auto 2.4 X10*3/uL (1.2-4.9); Lymphocytes Percent Auto 26.6 % (20-40); Mean Corpuscular HGB Conc 33.2 g/dl (31.0-35.0); Mean Corpuscular Hemoglobin 30.9 pg (27.0-33.0); Mean Corpuscular Volume 93.2 fL (80-98); Mean Platelet Volume 11.1 fL (9.4-12.3); Monocytes Absolute Auto 0.9 X10*3/uL (0.1-1.2); Neutrophils Absolute Auto 5.5 X10*3/uL (2.0-8.3); Platelet Count 183 X10*3/uL (160-400); Red Cell Distribution Width 12.8 % (11.0-16.0)
[2020-10-10 17:45] VITALS: BP 170/70; BP 188/68; PULSE 70; PULSE 71
[2020-10-10 17:50] VITALS: BP 147/78
[2020-10-10 17:53] LABS: INTERNATIONAL NORM RATIO 1.3 (0.9-1.1); Prothrombin Time 14.9 SEC (10.8-13.0)
[2020-10-10 17:56] LABS: Partial Thromboplastin Time 37.8 SEC (24.1-38.0)
[2020-10-10 18:09] LABS: Alanine Aminotransferase 17 U/L (0-31); Albumin Level 4.5 g/dL (3.5-5.0); Alkaline Phosphatase 66 U/L (39-117); Anion Gap 12 (12-20); Aspartate Amino Transferase 14 U/L (5-31); Bilirubin Direct 0.2 mg/dL (0.0-0.5); Bilirubin Total 0.7 mg/dL (0.0-1.0); Blood Urea Nitrogen 18 mg/dL (9-16); Carbon Dioxide 27 mmol/L (22-29); Chloride 105 mmol/L (96-108); Creatinine Clr Calc Pharmacy 41.3; Estimated Glomerular Filt Rate 55; Glucose Random 119 mg/dL (60-115); Lipase 50 U/L (8-78); Sodium 140 mmol/L (135-145); Total Protein 7.3 g/dL (6.5-8.0)
[2020-10-10 18:14] LABS: Troponin-I High Sensitivity 5.7 ng/L (<3.5-17.0)
[2020-10-10 19:30] LABS: Glucose Urine UA NEG (NEG); Leukocyte Esterase Urine 2+ (NEG); Nitrite Urine NEG (NEG); PH 5.5 (5.0-8.0); UACC Culture Trigger YES; Urine Blood TRACE (NEG); Urine Ketones NEG (NEG); Urine Protein NEG (NEG-TRACE)
[2020-10-10 19:32] LABS: Appearance Urine CLEAR; Color Urine YELLOW
[2020-10-10 19:51] LABS: Bacteria Urine 1+ /LPF; RBC Urine 0 /HPF (0); Squamous Epithelial Cell Urine 1+ /LPF
[2020-10-10 20:18] LABS: Troponin-I High Sensitivity 5.9 ng/L (<3.5-17.0)
== END 2020-10-10 20:07 | disposition home or self-care (01) ==
PROVIDERS: Nurse Practitioner Family; Emergency Provider Emergency Medicine; PCP Internal Medicine
DX: N39.0 Urinary tract infection, site not specified (principal); R42 Dizziness and giddiness; I48.91 Unspecified atrial fibrillation; Z79.01 Long term (current) use of anticoagulants; Z79.899 Other long term (current) drug therapy
CPT/HCPCS: 36415; 70450; 80048; 80076; 81001; 81003; 82947; 83690; 84484; 85025; 85610; 85730; 87086; 93005; 99284

== ENCOUNTER 2020-11-15 09:00 | Outpatient (RCR) | payer MEDICARE, OTHER, SELFPAY ==
--- NOTE | 2020-08-30 14:54 | MHC.PT.EP ---
[facility] [place] Office [place] Office [place] Office [address] Colette Betts [address] [phone] F: [phone] F: [phone] F: [phone] F: [phone] Physical Therapy Plan of Care Date of Evaluation: 08/30/20 Date of Surgery: Diagnosis: This is an 85 yo female presenting to skilled PT with a script for chronic L groin pain. Assessment: This is an 85 yo female presenting to skilled PT with a script for chronic L groin pain. This patient comes in today reporting L groin pain that has been ongoing for over a year. She reports her symptoms as giving out . She describes her pain as discomfort . She also reports L side low back and buttock pain that can be sharp at times and is on/off. Symptoms in general come and go. Functionally, she has a hard time getting in the car, getting up in the AM and getting up from a chair. She reports that she can walk about a mile and does not have any symptoms. She also reports not really enjoying exercise as she is lazy but understands physical therapy goals and importance of exercise. Assessment reveals pain that ranges to about a 4/10. She demos decreased L hip ROM and lumbar extension/lateral flexion, impaired L hip and core strength, deficits in gait with L hip drop, antalgic pattern and decreased heel strike, impaired balance with instability during transfers mainly and demos s/s as well as + special tests consistent with SIJ involvement. She is functionally limited in transfers out of chair, into car and rolling in bed. She is a good candidate for skilled PT 2x/wk for 5wks. Frequency and Duration: The patient will be seen 2x/wk for 5wks Short Term Goals: I in HEP in 2 wks Good compliance with posture (not crossing the legs, use of lumbar roll support) in 1 wk Patient will report centralized symptoms in 3 weeks. Fpc Goals: Demos functional BLE ROM and strength Report 50% improvement in general achiness Report no pain with transfers Demo good lifting and squatting techniques without pain Treatment Plan: Modalities to reduce pain, spasms and effusion. Manual therapy to restore motion and function. Therapeutic exercise to improve strength and flexibility. Neuromuscular re-education for posture and balance. Therapeutic activities to return to functional activities of daily living. Electronically signed by: Rose Marcano PT Please sign and return to therapist. Thank you for your referral.
--- NOTE | 2020-11-15 13:43 | MHC.PT.DC ---
[facility] [place] Office [place] Office [place] Office [address] Colette Betts [address] [phone] F: [phone] F: [phone] F: [phone] F: [phone] Physical Therapy Discharge Report Diagnosis: This is an 85 yo female presenting to skilled PT with a script for chronic L groin pain. Date of Surgery: Date of Evaluation: 08/30/20 Date of Discharge: 11/15/20 Treatments to Date: 17 Cancellations to Date: 0 No Shows to Date: 0 Discharge Status: Achieved Goals Improved Function Independent with HEP Recommend MD Follow-up Discharge Summary: Pt HAS PROGRESSED IN PT FOR LEFT GROIN SXS, HOWEVER, HER LBP ALTHOUGH FLUCTUATING, PERSISTS. SHE HAS IMPROVED PROX LEs / CORE STRENGTH EVIDENT W WFL PELVIC SYMM. SHE DEMON IMPROVED BODY MECH AWARENESS AND HAS IMPROVED FUNCTIONAL MOBILITY TOLERANCE EVIDENT W IMPROVED OSWESTRY SCORE TO12/50 (VS 58/80 AT EVAL) Electronically signed by: Malina Rosales, PT Please sign and return to therapist. Thank you for your referral.
== END 2020-11-15 13:45 | disposition other institution (70) ==
LOC: HO.PTCHIC 09:00
PROVIDERS: PCP Internal Medicine; Visit Provider Internal Medicine
DX: R10.32 Left lower quadrant pain (principal)
CPT/HCPCS: 97110; 97140; 97162

== ENCOUNTER 2020-11-22 | Outpatient (REF) | payer MEDICARE, OTHER, SELFPAY | END 2020-11-22 00:01 | disposition home or self-care (01) | LOC: HO.LNP | PROVIDERS: Visit Provider Internal Medicine | DX: R30.0 Dysuria (principal) | CPT/HCPCS: 87086 ==

== ENCOUNTER → 2020-11-28 12:58 | Outpatient (BNVA) | payer MEDICARE, OTHER, SELFPAY | PROVIDERS: PCP Internal Medicine; Visit Provider Internal Medicine Cardiovascular Disease | DX: I25.10 Atherosclerotic heart disease of native coronary artery without angina pectoris (principal); I48.0 Paroxysmal atrial fibrillation; R06.02 Shortness of breath | CPT/HCPCS: 99212 ==

== ENCOUNTER 2020-12-27 13:24 | Outpatient (REF) | payer MEDICARE, OTHER, SELFPAY ==
[2020-12-27 16:46] LABS: Vitamin D 25-OH Total 71.5 ng/mL (>30)
== END 2020-12-27 13:25 | disposition home or self-care (01) ==
LOC: HO.HMGCLDS 13:24
PROVIDERS: PCP Internal Medicine; Visit Provider Internal Medicine
DX: M79.10 Myalgia, unspecified site (principal); Z78.0 Asymptomatic menopausal state
CPT/HCPCS: 36415; 82306; 82550

== ENCOUNTER 2021-01-08 12:08 | Outpatient (REF) | payer MEDICARE, OTHER, SELFPAY ==
--- NOTE | ~2021-01-08 | XR_ITS ---
EXAMINATION: XR PELVIS CLINICAL INFORMATION: Hip pain. COMPARISON: Radiographs left hip 08/15/2020 TECHNIQUE: AP view of the pelvis. FINDINGS: The bony pelvis is intact. There is no fracture or dislocation or destructive process. The SI joints show no diastasis or visible erosive change or subchondral sclerosis. There is borderline osteitis pubis. There is mild spurring from the superolateral bilateral hip acetabula. No focal hip joint narrowing or visible erosive change. Bowel gas pattern is unremarkable. There are scattered calcified phleboliths in the left and right pelvis. Mild degenerative changes are present lumbar spine with vertebral spurring. XR/XR pelvis 1-2V IMPRESSION: 1. Mild osteitis pubis. 2. Mild spurring bilateral superolateral acetabula. No hip joint narrowing or erosive change. 3. Mild degenerative changes lumbar spine.
--- NOTE | ~2021-01-08 | XR_ITS ---
EXAMINATION: XR SHOULDER, LEFT CLINICAL INFORMATION: Shoulder pain. COMPARISON: None TECHNIQUE: The left shoulder is imaged in 3 views. FINDINGS: There is no fracture, dislocation, or destructive process. The glenohumeral joint is unremarkable. The acromioclavicular alignment is normal. There is some benign mineralization superior capsule acromioclavicular joint. No erosive change. No visible rotator cuff calcifications. XR/XR shoulder LT min 2V IMPRESSION: 1. No fracture or destructive process. 2. Chondrocalcinosis superior side acromioclavicular joint. No erosive change. 3. No visible rotator cuff calcifications.
== END 2021-01-08 12:09 | disposition home or self-care (01) ==
LOC: HO.HOSX 12:08
PROVIDERS: Visit Provider Orthopaedic Surgery
DX: M75.22 Bicipital tendinitis, left shoulder (principal); M25.552 Pain in left hip; M53.3 Sacrococcygeal disorders, not elsewhere classified; G89.29 Other chronic pain
CPT/HCPCS: 72170; 73030; 99202

== ENCOUNTER 2021-02-16 08:59 | Outpatient (REF) | payer MEDICARE, OTHER, SELFPAY ==
[2021-02-16 11:58] LABS: Cholesterol 191 mg/dL; HDL Cholesterol 34 mg/dL; LDL Cholesterol Calculated 108 mg/dl; Triglycerides 247 mg/dL
== END 2021-02-16 09:00 | disposition home or self-care (01) ==
LOC: HO.HMGCLDS 08:59
PROVIDERS: PCP Internal Medicine; Visit Provider Internal Medicine Cardiovascular Disease
DX: I25.10 Atherosclerotic heart disease of native coronary artery without angina pectoris (principal)
CPT/HCPCS: 36415; 80061

== ENCOUNTER 2021-03-09 14:00 | Outpatient (RCR) | payer MEDICARE, OTHER, SELFPAY ==
--- NOTE | 2021-01-30 15:49 | MHC.PT.EP ---
[facility] [place] Office [place] Office [place] Office [address] Colette Betts [address] [phone] F: [phone] F: [phone] F: [phone] F: [phone] Physical Therapy Plan of Care Date of Evaluation: Date of Surgery: Diagnosis: LEFT SHOULDER PAIN, LEFT BICIPITAL TENDONITIS Assessment: 85 YO FEMALE REF TO PT W LEFT SH PAIN/ BICIPITAL TENDONITIS- PER Pt BOUTS OF PAIN THAT RESOLVED, RECENT EXACERBATION SINCE SEP 2020. 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 OBJECTIVE FINDINGS: DECR AROM LEFT SH, (+) MILD IMPINGEMENT SXS Lt SH, DECR POSTURAL AWARENESS, AND PAIN IN LEFT ANT GH SOFT TISSUES. FUNCTIONALLY, Pt IS LIMITED W ADLs REQ Lt SH ABD, LIFTING/ CARRYING/REACHING. SHE CURRENTLY DOES NOT APPEAR TO HAVE ANY GH INSTABILITY. SHE HAS NOT BEEN APPLYING ICE OR HEAT FOR PAIN MGMT, NO H/O INJECTIONS. Frequency and Duration: The patient will be seen 2x WK x 5 WKS Short Term Goals: Pt'S LEFT SH PAIN DECR TO 2-3/10 W REG ADLs IN 2 WKS Pt INDEP W SELF POSTURAL CORRECT IN 2 WKS Pt DEMON WFL AROM Lt SH IN 2 WKS Lost Charge Card Clerk Goals: Pt INDEP HEP AND SELF-SX MGMT TECHN IN 5 WKS Pt RESUME REG ADLs AND IMPROVED SPADI BY AT LEAST 5 POINTS IN 5 WKS Treatment Plan: Modalities to reduce pain, spasms and effusion. Manual therapy to restore motion and function. Therapeutic exercise to improve strength and flexibility. Neuromuscular re-education for posture and balance. Therapeutic activities to return to functional activities of daily living. Electronically signed by: Malina Rosales,PT Please sign and return to therapist. Thank you for your referral.
--- NOTE | 2021-03-09 15:57 | MHC.PT.DC ---
[facility] [place] Office [place] Office [place] Office [address] Colette Betts 140 [facility] [phone] F: [phone] F: [phone] F: [phone] F: [phone] Physical Therapy Discharge Report Diagnosis: LEFT SHOULDER PAIN, LEFT BICIPITAL TENDONITIS Date of Surgery: Date of Evaluation: 01/30/21 Date of Discharge: 03/09/21 Treatments to Date: 10 Cancellations to Date: 0 No Shows to Date: 0 Discharge Status: Achieved Goals Improved Function Independent with HEP Discharge Summary: Patient ready for DC. Reviewed and provided HEP. Demos good ROM and strength, has no more a 2/10 pain at the most and this is not all the time. DC to HEP at this time Electronically signed by: Rose Marcano PT Please sign and return to therapist. Thank you for your referral.
== END 2021-03-09 16:01 | disposition home or self-care (01) ==
LOC: HO.PTCHIC 14:00
PROVIDERS: PCP Internal Medicine; Visit Provider Orthopaedic Surgery
DX: M25.512 Pain in left shoulder (principal); M75.22 Bicipital tendinitis, left shoulder
CPT/HCPCS: 97110; 97140; 97161

== ENCOUNTER 2021-04-06 16:07 | Outpatient (REF) | payer MEDICARE, OTHER, SELFPAY ==
--- NOTE | ~2021-04-06 | MM_ITS ---
EXAMINATION: MM SCREENING DIGITAL BREAST TOMOSYNTHESIS, BILATERAL CLINICAL INFORMATION: Screening. Asymptomatic. COMPARISON: Mammography: 02/25/2020, 09/23/2018, 09/16/2017 TECHNIQUE: Digital breast tomosynthesis is performed in both the craniocaudal and mediolateral oblique views along with computer-aided detection (CAD). Synthesized 2D images are generated from the tomosynthesis. Additional right MLO view is provided. FINDINGS: The breasts are heterogeneously dense, which may obscure small masses (ACR BI-RADS breast composition Category c). There are no significant masses, abnormal calcifications, or other abnormalities. Parenchymal pattern is similar to prior exams. There is no developing density. Scattered benign punctate calcifications are again present similar in number and distribution. The axilla and skin contours are unremarkable. No significant changes. MM/MM tomosynthesis screening BI IMPRESSION: No mammographic evidence of malignancy. ASSESSMENT: BI-RADS 2: Benign RECOMMENDATION: Routine annual mammography screening. This patient's information was entered into a reminder system with a target due date for their next mammogram.
== END 2021-04-06 16:08 | disposition home or self-care (01) ==
LOC: HO.MAMMO 16:07
PROVIDERS: Visit Provider Internal Medicine
DX: Z12.31 Encounter for screening mammogram for malignant neoplasm of breast (principal)
CPT/HCPCS: 77063; 77067

== ENCOUNTER → 2021-11-29 13:53 | Outpatient (REF) | payer MEDICARE, OTHER, SELFPAY ==
--- NOTE | 2021-11-29 14:01 | CA_ITS ---
Transthoracic Echocardiogram Patient (Last, First, Middle): Maria Elena Fay B Gender: Female Date of : 1935 Age: 86 Procedure Date: 11/29/2021 Procedure Type: Transthoracic Echocardiogram Location: OP Height: 160.02 cm Weight: 69.85 kg BSA: 1.73 m2 Heart Rate: bpm BP: 120 / 80 mmHg Manager Reporting: TO Referring MD: Edin Lord MD Symptoms: I48.0 - Paroxysmal atrial fibrillation Study Quality: Fair ECG Rhythm: Sinus Conclusions: - The left ventricular systolic function is normal. The calculated ejection fraction is 67% by biplane method. - Evidence suggests grade II (moderate) diastolic dysfunction. - The left atrium is mildly dilated. - There is mild calcification of the aortic valve. Findings Left Ventricle Normal left ventricular cavity size. The left ventricular systolic function is normal. The calculated ejection fraction is 67% by biplane method. There is no evidence of regional wall motion abnormalities. E/E prime ratio is between 8 and 15 consistent with indeterminate filling pressures. Evidence suggests grade II (moderate) diastolic dysfunction. There is mild septal asymmetric hypertrophy. Right Ventricle Normal right ventricular cavity size and systolic function. Atria The left atrium is mildly dilated. The right atrium is normal in size. Aortic Valve There is mild calcification of the aortic valve. There is no aortic valve stenosis. There is trace (trivial) aortic valve regurgitation. Mitral Valve The mitral valve appears normal. There is trace mitral valve regurgitation. There is no mitral valve stenosis. Pulmonic Valve The pulmonic valve is likely normal. Tricuspid Valve Normal tricuspid valve structure. There is mild tricuspid valve regurgitation. Top normal RVSP. Great Vessels Top normal ascending aortic size at 3.8cm. Venous The inferior vena cava is normal in size and collapses greater than 50% with inspiration. Pericardium/Pleural There is no evidence of pericardial effusion. Prior Study Comparison Changes noted compared to prior study dated: 05/19/2020. Progression of diastolic dysfunction. Measurements 2D Linear Measurements IVSd: 1.01 0.6-0.9/0.6-1.0 cm LVIDd: 4.60 3.9-5.3/4.2-5.9 cm LVIDd Index: 2.66 2.4-3.2/2.2-3.1 cm/m2 LVIDs: 3.16 2.0-3.6 cm LVPWd: 0.86 0.7-1.1 cm LA Diam: 3.50 2.7-3.8/3.0-4.0 cm LAIDs Index: 2.02 1.5-2.3 cm/m2 LV Mass: 180.71 67-162/88-224 g LV Mass Index: 104.45 43-95/49-115 g/m2 LVOT Diam: 2.00 3.0+(-)1.3 cm 2D Systolic Function EF 4C: 66.90 >55% EF 2C: 67.10 >55% EF BiP: 67.30 >55% Mitral Valve MV Pk E: 0.76 MV PK A: 0.67 MV Decel Time: 242.00 E/A: 1.10 E'Lateral: 5.55 E'Medial: 5.00 E/E' Med: 15.30 E/E' Lat: 13.70 PHT: 71.00 MVA PHT: 3.10 Decel Frio: 3.15 Aortic Valve AoV Pk Vitaliy: 1.49 AoV Mn Vitaliy: 1.01 AoV VTI: 0.36 AoV Pk Grad: 9.00 Aov Mn Grad: 5.00 KAVIN Cont.VTI: 2.55 LVOT LVOT Pk Vitaliy: 1.22 LVOT Mn Vitaliy: 0.85 LVOT VTI: 0.29 LVOT Pk Grad: 6.00 LVOT Mn Grad: 3.00 LVOT Diam: 2.00 LVOT Area: 3.14 Diastolic Function MV Pk E: 0.76 MV Pk A: 0.67 E/A: 1.10 E'Medial: 5.00 E/E' Med: 15.30 E' Laterial: 5.55 E/E' Lat: 13.70 Right Ventricle TAPSE (mm): 18.40 TVS' Vitaliy: 13.30 Tricuspid Valve TR Pk Vitaliy: 2.82 TR Pk Grad: 32.00 RA Press: 3.00 RVSP: 35.00 Great Vessels Aorta Sinus of Valsalva: 2.56 2.0-3.[address] Ridge: 3.13 1.7-3.4 cm Ao Asc: 3.80 2.1-3.4 cm Updated in Other Vendor System with Status of Final Jose Nj MD electronically signed on 11/30/2021 1:39:23 PM with status of Final
== END ==
LOC: HO.CARD 13:53
PROVIDERS: Visit Provider Internal Medicine Cardiovascular Disease
DX: I48.0 Paroxysmal atrial fibrillation (principal); I25.10 Atherosclerotic heart disease of native coronary artery without angina pectoris
CPT/HCPCS: 93005; 93306; 99212